=== PATIENT | female | born 1975 | race Caucasian/White ===

== ENCOUNTER 2016-06-21 09:27 | Emergency (ER) | payer OTHER ==
[2016-06-21] MEDS ORDERED: SODIUM CHLORIDE 0.9% 1,000 ML ONE (09:42)
[2016-06-21] MEDS ORDERED: ONDANSETRON 4 MG VIAL ONE ×2 (09:42→11:38)
[2016-06-21] MEDS ORDERED: DICYCLOMINE 20MG/2ML VIAL IM ONE (09:42)
[2016-06-21] MEDS ORDERED: KETOROLAC 30 MG/ML VIAL ONE (11:38)
== END 2016-06-21 12:37 | disposition home or self-care (01) ==
LOC: ER 09:27
DX: K52.9 Noninfective gastroenteritis and colitis, unspecified (principal); Z79.899 Other long term (current) drug therapy; F17.210 Nicotine dependence, cigarettes, uncomplicated
CPT/HCPCS: 36415; 80053; 81001; 83690; 85025; 96361; 96372; 96374; 96375; 96376; 99283; J0500; J1885; J2405